=== PATIENT | male | born 1960 | race Caucasian/White ===

== ENCOUNTER 2018-11-19 10:27 | Emergency (ER) | payer OTHER ==
[~2018-11-19] VITALS: Ht 177.8 cm; Wt 113.4 kg
[~2018-11-19 10:27] MED LIST: KETO10TA2 PO
== END 2018-11-19 13:59 | disposition home or self-care (01) ==
LOC: ER 10:27
DX: S96.811A Strain of other specified muscles and tendons at ankle and foot level, right foot, initial encounter (principal); X50.9XXA Other and unspecified overexertion or strenuous movements or postures, initial encounter; Y93.89 Activity, other specified; Y92.89 Other specified places as the place of occurrence of the external cause; Y99.8 Other external cause status